=== PATIENT | female | born 1945 | race Hispanic/Latino ===

== ENCOUNTER 2016-03-26 11:29 | Outpatient (CLI) | payer MEDICARE ==
[2016-03-26 12:57] LABS: Blood Urea Nitrogen 12 mg/dL (7-17)
[2016-03-26] MEDS ORDERED: NACL ONE (13:56)
--- NOTE | 2016-03-26 14:43 | Cat Scan Report ---
CT angiography of the chest with 3-D reconstructed images. Findings: There is no evidence of pulmonary emboli. The mediastinum and hilar regions are normal. The lungs are free of acute infiltrates, masses, or nodules. No pleural fluid is seen. Images which include a portion of the upper abdomen demonstrate calcified granulomas in the spleen and liver. No axillary adenopathy is seen. Impression: No evidence of pulmonary emboli or other significant findings.
== END 2016-03-26 11:30 | disposition home or self-care (01) ==
LOC: CT 11:29
PROVIDERS: ATTEND Internal Medicine Hematology & Oncology
DX: C50.811 Malignant neoplasm of overlapping sites of right female breast (principal); K75.3 Granulomatous hepatitis, not elsewhere classified; D73.89 Other diseases of spleen; M79.89 Other specified soft tissue disorders; Z90.13 Acquired absence of bilateral breasts and nipples
CPT/HCPCS: 36415; 71275; 82565; 84520; Q9967